=== PATIENT | female | born 1950 | race Native Hawaiian/Other Pacific Islander ===

== ENCOUNTER 2022-09-11 14:39 | Emergency (ER) | payer MEDICARE ==
[~2022-09-11] VITALS: Ht 152.4 cm; Wt 42.2 kg
--- NOTE | 2022-09-11 15:09 | NUR ---
72 years old female presents to er with daughter c/o gen weakness, chest palpitations today denies nausea vomiting.
[2022-09-11 15:48] LABS: HEMATOCRIT 39.7 % (31.2-41.9); MEAN CORPUSCULAR HEMOGLOBIN 31.7 uug (24.7-32.8); MEAN CORPUSCULAR VOLUME 95.6 fL (75.5-95.3); PLATELET COUNT (AUTO) 282 K/uL (179-408)
[2022-09-11 16:01] LABS: CARBON DIOXIDE 28 mmol/L (21-32); CHLORIDE 106 mmol/L (98-107); CREATININE 0.8 mg/dL (0.6-1.3); GLUCOSE 108 mg/dL (74-106); POTASSIUM 4.9 mmol/L (3.5-5.1); UREA NITROGEN, BLOOD 18 mg/dL (7-18)
[2022-09-11 16:06] LABS: *BILIRUBIN,URIN NEGATIVE (NEGATIVE); *BLOOD, URINE 2+ (NEGATIVE); *CLARITY,URINE CLEAR (CLEAR); *COLOR,URINE YELLOW (YELLOW); *KETONES,URINE NEGATIVE (NEGATIVE); *UROBILINOGEN,URINE 0.2 E.U./dl (NORMAL); LEUKOCYTE ESTERASE ,URINE NEGATIVE (NEGATIVE); NITRITE, URINE NEGATIVE (NEGATIVE); UGLUCOSE NEGATIVE (NEGATIVE)
[2022-09-11 16:08] LABS: BACTERIA,URINE NONE SEEN /HPF (NONE SEEN); RBC,URINE 20-50 /HPF (0-3); SQUAMOUS EPITHELIAL CELL,UR FEW /HPF (NONE SEEN); WBC,URINE 0-3 /HPF (0-3)
[2022-09-11 16:31] LABS: THYROID STIMULATING HORMONE 1.238 mIU/mL (0.358-3.740)
[2022-09-11 16:41] LABS: PHOSPHOROUS 4.3 mg/dL (2.5-4.9)
[2022-09-11 16:42] LABS: MAGNESIUM 2.1 mg/dL (1.8-2.4)
[2022-09-11] MEDS ORDERED: HALOPERIDOL LACTATE 5 MG/1 ML VIAL IM ONE (17:15)
--- NOTE | 2022-09-11 17:30 | NUR ---
patient reassess condition stable d/c home with instructions after care reviewed understood left er with daughter ambulatory with steady gait.
[2022-09-11 17:31] VITALS: BP 118/70
== END 2022-09-11 17:32 | disposition home or self-care (01) ==
LOC: ER 14:39
DX: R20.2 Paresthesia of skin (principal); E86.0 Dehydration; R00.2 Palpitations; Z88.0 Allergy status to penicillin
CPT/HCPCS: 36415; 83735; 84100; 84443; 85025; 93005; A4663